=== PATIENT | female | born 1965 | race American Indian/Alaskan Native ===

== ENCOUNTER 2018-10-31 15:45 | Emergency (ER) | payer OTHER ==
--- NOTE | 2018-10-31 16:44 | Emergency Department Report ---
ED Psych HPI - General Chief Complaint: Psych Stated Complaint: 1013 Time Seen by Provider: 10/31/18 16:25 Source: patient, police Mode of arrival: Ambulatory - History of Present Illness Initial Comments: Patient is 53 years old female with history of schizophrenia, noncompliant with her medication. Patient brought to the emergency room via police for evaluation of aggressive behavior. Patient threw a chair to her nephew causing him to have a right shoulder dislocation. Upon examination patient with obvious psychosis. Positive loose association, words salad and flights of ideas. Patient will get aggressive when I ask her certain questions. Patient denied auditory and visual hallucination. She also denied any suicidal or homicidal ideation. MD Complaint: altered mental status ED Review of Systems ROS: Stated complaint: 1013 Other details as noted in HPI Comment: All other systems reviewed and negative Constitutional: denies: chills, fever Respiratory: denies: cough, shortness of breath, SOB with exertion, wheezing Cardiovascular: denies: chest pain, palpitations Gastrointestinal: denies: abdominal pain Musculoskeletal: denies: back pain Neurological: denies: headache, weakness, numbness, paresthesias, confusion, abnormal gait ED Past Medical Hx - Past Medical History Previous Medical History?: Yes Hx Hypertension: Yes Hx Psychiatric Treatment: Yes (schizophrenia) - Surgical History Past Surgical History?: No - Social History Smoking Status: Current Every Day Smoker Substance Use Type: None ED Physical Exam - General Limitations: No Limitations General appearance: alert, in no apparent distress - Head Head exam: Present: atraumatic, normocephalic, normal inspection - Eye Eye exam: Present: normal appearance, PERRL - ENT ENT exam: Present: normal exam, normal orophraynx, mucous membranes moist - Neck Neck exam: Present: normal inspection, full ROM. Absent: tenderness, meningismus, lymphadenopathy, thyromegaly - Respiratory Respiratory exam: Present: normal lung sounds bilaterally. Absent: respiratory distress, wheezes, rales, rhonchi, chest wall tenderness, accessory muscle use, decreased breath sounds, prolonged expiratory - Cardiovascular Cardiovascular Exam: Present: regular rate, normal rhythm, normal heart sounds - GI/Abdominal GI/Abdominal exam: Present: soft, normal bowel sounds. Absent: distended, te nderness, guarding, rebound, rigid, organomegaly, mass, bruit, pulsatile mass, hernia - Extremities Exam Extremities exam: Present: normal inspection, full ROM, normal capillary refill. Absent: tenderness, pedal edema, calf tenderness - Back Exam Back exam: Present: normal inspection, full ROM. Absent: CVA tenderness (R), CVA tenderness (L), muscle spasm, paraspinal tenderness, vertebral tenderness - Neurological Exam Neurological exam: Present: alert, oriented X3, CN II-XII intact, normal gait, reflexes normal - Psychiatric Psychiatric exam: Present: agitated, anxious, manic. Absent: homicidal ideation, suicidal ideation - Skin Skin exam: Present: warm, intact, normal color ED Course Vital Signs 10/31/18 16:01 Temperature 98.7 F Pulse Rate 101 H Respiratory 22 Rate Blood Pressure 179/91 [Left] O2 Sat by Pulse 96 Oximetry Critical care attestation.: If time is entered above; I have spent that time in minutes in the direct care of this critically ill patient, excluding procedure time. ED Disposition Clinical Impression: Acute psychosis, Schizophrenia Disposition: [id number]/TX-65 PSY HOSP/PSY UNIT Is pt being admited?: No Condition: Stable
[2018-10-31 16:59] LABS: Basophils # (Auto) 0.1 K/mm3 (0.0-0.1); Basophils % (Auto) 0.7 % (0.0-1.8); Eosinophils # (Auto) 0.1 K/mm3 (0.0-0.4); Eosinophils % (Auto) 1.5 % (0.0-4.3); Hematocrit 29.1 % (30.3-42.9); Hemoglobin 9.7 gm/dl (10.1-14.3); Lymphocytes % (Auto) 22.7 % (13.4-35.0); Mean Corpuscular HGB Conc 33 % (30-34); Mean Corpuscular Volume 80 fl (79-97); Monocytes # (Auto) 0.6 K/mm3 (0.0-0.8); Monocytes % (Auto) 7.1 % (0.0-7.3); Platelet Count 345 K/mm3 (140-440); Red Blood Count 3.63 M/mm3 (3.65-5.03); Red Cell Distribution Width 17.2 % (13.2-15.2)
[2018-10-31 17:15] LABS: Alanine Aminotransferase 7 units/L (7-56); Albumin 4.1 g/dL (3.9-5); BUN/Creatinine Ratio 14; Blood Urea Nitrogen 11 mg/dL (7-17); Hemolysis Index 0
[2018-10-31 17:18] LABS: Bilirubin,Direct < 0.2 mg/dL (0-0.2)
[2018-10-31] MEDS ORDERED: K-DUR PO ONE ×2 (17:37)
[2018-10-31 17:48] LABS: Bacteria,Urine 1+ /HPF (Negative); Bilirubin,Urine NEG (Negative); Blood,Urine LG (Negative); Color,Urine Yellow (Yellow); Mucus,Urine 3+ /HPF; Urobilinogen,Urine < 2.0 mg/dL (<2.0)
[2018-10-31 17:56] LABS: Amphetamine Screen,Urine PRESUMPTIVE NEGATIVE; Benzodiazepines Screen,Urine PRESUMPTIVE NEGATIVE; Cannabinoid Screen,Urine PRESUMPTIVE NEGATIVE; Cocaine Screen,Urine PRESUMPTIVE NEGATIVE; Methadone Screen,Urine PRESUMPTIVE NEGATIVE; Opiate Screen,Urine PRESUMPTIVE NEGATIVE
[2018-10-31 18:00] LABS: RBC,Urine > 182.0 /HPF (0.0-6.0)
[2018-10-31] MEDS ORDERED: NORVASC PO ONE (20:07)
[2018-11-01] MEDS ORDERED: NORVASC PO ONE (02:30)
[2018-11-01] MEDS ORDERED: CATAPRES PO ONE (12:13)
--- NOTE | 2018-11-01 12:56 | Consultation ---
History of Present Illness - Reason for Consult Consult date: 11/01/18 Reason for consult: Psychiatry Follow-up Requesting physician: LUIS F HART - Chief Complaint Chief complaint: "I didn't do anything" - History of Present Psychiatric Illness 53 y.o. AA female whp presented to the ER for aggressive behavior. Today the patient was disorganized during the assessment. She was asked about her behavior at her home, she stated, "I gave him a chair." I asked the patient who is "him," her answer wasn't logical. She consider herself to be "God" throughout the interview. She became irritable when asked more questions about why she was brought to the ER. Overall, the patient's insight is poor. No gestures of SI/HI's. Per the record, the patient threw a chair at her nephew. She was brought to the ER per the local police. Medications and Allergies Allergies Allergy/AdvReac Type Severity Reaction Status Date / Time No Known Allergies Allergy Verified 10/31/18 17:36 Active Meds: Active Medications Amlodipine Besylate (Norvasc) 10 mg PO DAILY@2100 RADHA Past psychiatric history - Past Medical History Past Medical History: hypertension Past Surgical History: No surgical history - past Psychiatric treatment and history psychiatric treatment history: Unable to obtain a psy hx and a fam psy hx. - Social History Social history: other (Reside "at a home" per the patient) Mental Status Exam - Vital signs Last Vital Signs Temp 98.5 F 11/01/18 09:00 Pulse 82 11/01/18 12:19 Resp 18 11/01/18 12:16 BP 191/97 11/01/18 12:19 Pulse Ox 99 11/01/18 12:16 - Exam Narrative exam: MSE: Appearance: in hospital attire Behavior: regular eye contact Speech: regular rate and tone Mood: "okay" Affect: flat Thought Process: disorganized, tangential Thought Content: no gestures of SI/HI's, delusional, grandiose Motor Activity: ambulatory Cognition: A/O x3 Insight: poor Judgment: poor Results Result Diagrams: 10/31/18 16:43 10/31/18 16:43 Abnormal lab results 10/31/18 10/31/18 10/31/18 Range/Units 16:43 16:43 Unknown RBC 3.63 L (3.65-5.03) M/mm3 Hgb 9.7 L (10.1-14.3) gm/dl Hct 29.1 L (30.3-42.9) % MCH 27 L (28-32) pg RDW 17.2 H (13.2-15.2) % Potassium 3.1 L (3.6-5.0) mmol/L Chloride 109.6 H (98-107) mmol/L Urine WBC (Auto) 17.0 H (0.0-6.0) /HPF All other labs normal. Assessment and Plan Assessment and plan: Impression; Unspecified Psychosis. Today the patient was disorganized during the assessment. UDS is negative DDx: Schizophrenia, Bipolar DO with psychosis Recommendation/Plan: Continue 1013 and start Zyprexa 5 mg PO HS for psychosis. Attempted to discuss possible metabolic side effects of Zyprexa with the patient. Baseline A1c/Lipid Panel ordered for the AM. Dispo: The patient was referred to inpatient psy services. Staffed with Dr Navdeep Wynne.
[2018-11-01] MEDS ORDERED: NORVASC PO SCH (21:00)
[2018-11-01] MEDS: NORVASC PO SCH (21:59)
[2018-11-02 08:02] LABS: Chol/HDL Ratio 2.7 %
[2018-11-02] MEDS: ZESTRIL PO SCH (09:00)
--- NOTE | 2018-11-02 09:07 | Progress Note ---
Subjective - Reason for Consult Consult date: 11/02/18 Reason for consult: Psychistary Follow-up - Chief Complaint Chief complaint: "I'm good for now" 53 y.o. AA female who presented to the ER for aggressive behavior. Today the patient was still disorganized during the assessment. She wanted to discuss gnosticism content throughout the interview. Her answers to most questions were not logical. No gestures of SI/HI's. No indications of side effects from her medication. Mental Status Exam - Vital signs Last Vital Signs Temp 98.3 F 11/02/18 07:00 Pulse 82 11/02/18 07:00 Resp 18 11/02/18 07:00 BP 198/112 11/02/18 07:00 Pulse Ox 100 11/02/18 07:00 - Exam Narrative exam: MSE: Appearance: in hospital attire Behavior: regular eye contact Speech: regular rate and tone Mood: "okay" Affect: flat Thought Process: disorganized Thought Content: no gestures of SI/HI's, delusional, grandiose, hyper gnosticism Motor Activity: ambulatory Cognition: A/O x3 Insight: poor Judgment: poor Assessment and Plan Impression; Unspecified Psychosis. Today the patient was still disorganized during the assessment. UDS is negative Medical: The patient's BP is being address by the ER Physician. DDx: Schizophrenia, Bipolar DO with psychosis Recommendation/Plan: Continue 1013 and Zyprexa 5 mg PO HS for psychosis. Attempted to discuss possible metabolic side effects of Zyprexa with the patient. Baseline A1c/Lipid Panel ordered for the AM. Dispo: The patient was referred to inpatient psy services. Staffed with Dr Navdeep Wynne.
[2018-11-02] MEDS ORDERED: LEVAQUIN PO SCH (19:00)
[2018-11-02] MEDS: NORVASC PO SCH (21:19)
--- NOTE | 2018-11-03 08:09 | Progress Note ---
Subjective - Reason for Consult Consult date: 11/03/18 Reason for consult: Psychiatry Follow-up - Chief Complaint Chief complaint: "I'm great" 53 y.o. AA female who presented to the ER for aggressive behavior. Today the patient was still disorganized during the assessment. She would answer all question reference restoration content. Overall, her answers to questions were not logical. She denies SI/HI's and VH's. She want confirm or deny AH's. No indicat ions of side effects from her medication. Mental Status Exam - Vital signs Last Vital Signs Temp 98.7 F 11/03/18 01:15 Pulse 76 11/03/18 01:15 Resp 18 11/03/18 01:15 BP 146/69 11/03/18 01:15 Pulse Ox 99 11/03/18 01:15 - Exam Narrative exam: MSE: Appearance: in hospital attire Behavior: regular eye contact Speech: regular rate and tone Mood: 'blessed" Affect: flat Thought Process: disorganized Thought Content: denies SI/HI's and AVHs', delusional, grandiose, hyper restoration Motor Activity: ambulatory Cognition: A/O x3 Insight: poor Judgment: poor Assessment and Plan Impression; Unspecified Psychosis. Today the patient was still disorganized during the assessment. UDS is negative Medical: The patient's BP is being address by the ER Physician. DDx: Schizophrenia, Bipolar DO with psychosis Recommendation/Plan: Continue 1013 and increase Zyprexa to 10 mg PO HS for psychosis. Attempted to discuss possible metabolic side effects of Zyprexa with the patient. Dispo: The patient was referred to inpatient psy services. Will staff with Dr Navdeep Wynne.
[2018-11-03] MEDS: ZESTRIL PO SCH (11:00)
[2018-11-03] MEDS: NORVASC PO SCH (21:41)
--- NOTE | 2018-11-04 09:32 | Progress Note ---
Subjective - Reason for Consult Consult date: 11/04/18 Reason for consult: Psychiatry Follow-up - Chief Complaint Chief complaint: "You know why I'm here" 53 y.o. AA female who presented to the ER for aggressive behavior. Today the patient was calm during the assessment. She is adamant that I the provider know why she's in the ER. The patient was delusional throughout the interview. She denies SI/HI's and AVH's. No indications of side effects from her medication. Mental Status Exam - Vital signs Last Vital Signs Temp 97.8 F 11/04/18 07:00 Pulse 83 11/04/18 07:00 Resp 18 11/04/18 07:00 BP 180/94 11/04/18 07:00 Pulse Ox 100 11/04/18 07:00 - Exam Narrative exam: MSE: Appearance: calm Behavior: regular eye contact Speech: regular rate and tone Mood: "okay" Affect: flat Thought Process: disorganized Thought Content: denies SI/HI's and AVH's, delusional Motor Activity: ambulatory Cognition: A/O x3 Insight: poor Judgment: poor Assessment and Plan Impression; Unspecified Psychosis. Today the patient was calm during the assessment. UDS is negative Medical: The patient's BP is being address by the ER Physician. DDx: Schizophrenia, Bipolar DO with psychosis Recommendation/Plan: Continue 1013 and Zyprexa to 10 mg PO HS for psychosis. Attempted to discuss possible metabolic side effects of Zyprexa with the patient. Dispo: The patient was referred to inpatient psy services. Will staff with Dr Navdeep Wynne.
[2018-11-04] MEDS: ZESTRIL PO SCH (11:35)
[2018-11-04] MEDS: NORVASC PO SCH (21:45)
--- NOTE | 2018-11-05 09:47 | Progress Note ---
Subjective - Reason for Consult Consult date: 11/05/18 Reason for consult: Psychiatry Follow-up - Chief Complaint Chief complaint: "What do you want" 53 y.o. AA female who presented to the ER for aggressive behavior. Today the patient was calm, but somewhat uncooperative during the assessment. She would not answer most questions asked of her. She is adamant there's nothing wrong with her mentally. She appeared that she's responding to some type of stimuli throughout the interview. No gestures of SI/HI's and AVH's. No indications of side effects from her medication. Mental Status Exam - Vital signs Last Vital Signs Temp 97.6 F 11/05/18 07:00 Pulse 79 11/05/18 07:00 Resp 18 11/05/18 07:00 BP 168/87 11/05/18 07:00 Pulse Ox 99 11/05/18 07:00 - Exam Narrative exam: MSE: Appearance: calm Behavior: regular eye contact Speech: regular rate and tone Mood: "okay" Affect: flat Thought Process: unable to assess Thought Content: no gestures oif SI/HI's Motor Activity: ambulatory Cognition: A/O x3 Insight: unable to assess Judgment: unable to assess Assessment and Plan Impression; Unspecified Psychosis. Today the patient was calm, nut uncooperative during the assessment. UDS is negative DDx: Schizophrenia, Bipolar DO with psychosis Recommendation/Plan: Continue 1013 and Zyprexa 10 mg PO HS for psychosis. Attempted to discuss possible metabolic side effects of Zyprexa with the patient. Dispo: The patient was accepted at [facility] for inpatient psy services pending transport time. Will staff with Dr Navdeep Wynne.
[2018-11-05] MEDS: ZESTRIL PO SCH (10:53)
[2018-11-05] MEDS: NORVASC PO SCH (23:04)
[2018-11-06 01:41] VITALS: BP 191/67
== END 2018-11-06 02:27 ==
LOC: ED 15:45 → EEVIPCON 15:45 → ED 11-06 02:27
DX: F23 Brief psychotic disorder (principal); F17.200 Nicotine dependence, unspecified, uncomplicated; I10 Essential (primary) hypertension
CPT/HCPCS: 36415; 80048; 80061; 80076; 80307; 80320; 81001; 83036; 84484; 84703; 85025; 87086; G0480